=== PATIENT | female | born 1980 | race Caucasian/White ===

== ENCOUNTER 2024-04-30 11:30 | Emergency (ER) | payer SELFPAY ==
[2024-04-30] MEDS: predniSONE 20 MG Tab PO ONE (12:46)
[2024-04-30] MEDS: Lidocaine 4% 1 each Patch TOP PRN (12:46)
[2024-04-30] MEDS ORDERED: Naloxone 0.4 MG/ML SDV IVPUSH PRN (14:02)
[2024-04-30] MEDS: Morphine 4 MG/ML Syringe IM ONE (14:10)
== END 2024-04-30 14:34 | disposition home or self-care (01) ==
LOC: MW.ED 11:30
DX: M54.16 Radiculopathy, lumbar region (principal); Z79.899 Other long term (current) drug therapy; Z75.8 Other problems related to medical facilities and other health care
CPT/HCPCS: 96372; 99284; A9270; J2270